=== PATIENT | female | born 1945 | race Hispanic/Latino ===

== ENCOUNTER 2017-08-10 12:04 | Outpatient (CLI) | payer MEDICARE, MEDICAID | END 2017-08-10 12:05 | disposition home or self-care (01) | LOC: BICRAD 12:04 | PROVIDERS: ATTEND Family Medicine | DX: R05 Cough (principal) | CPT/HCPCS: 71046 ==

== ENCOUNTER 2021-09-05 14:36 | Emergency (ER) | payer MEDICAID, MEDICARE ==
[2021-09-05] MEDS ORDERED: Ondansetron PF 4 MG/2 ML Vial ONE ×2 (15:52→15:53)
[2021-09-05] MEDS ORDERED: Meclizine HCl 25 MG TAB ONE (15:52)
[2021-09-05] MEDS ORDERED: Metoprolol Tartrate 25 MG TAB ONE (15:53)
== END 2021-09-05 18:08 | disposition home or self-care (01) ==
LOC: ERS 14:36
DX: R42 Dizziness and giddiness (principal); I10 Essential (primary) hypertension; E78.5 Hyperlipidemia, unspecified; E03.9 Hypothyroidism, unspecified; F17.210 Nicotine dependence, cigarettes, uncomplicated; Z79.899 Other long term (current) drug therapy
CPT/HCPCS: 96374; J2405

== ENCOUNTER 2022-02-26 09:17 | Emergency (ER) | payer MEDICARE ==
[2022-02-26] MEDS ORDERED: Diazepam 5 MG TAB ONE (10:14)
== END 2022-02-26 17:53 | disposition home or self-care (01) ==
LOC: ERS 09:17
DX: M54.2 Cervicalgia (principal); I10 Essential (primary) hypertension; E78.5 Hyperlipidemia, unspecified; Z76.0 Encounter for issue of repeat prescription
CPT/HCPCS: 99283

== ENCOUNTER 2023-10-07 15:03 | Emergency (ER) | payer MEDICARE ==
[2023-10-07 17:24] LABS: #Basophils 0.03 10x3/uL (0.0-0.2); %Basophils 0.5 % (0.0-1.0); %Eosinophils 1.7 % (0.0-10.0); %Monocytes 7.1 % (0.0-10.0); %Neutrophils 57.5 % (42.0-75.0); Hematocrit 38.4 % (36.0-47.0); Hemoglobin 12.9 g/dL (12.0-16.0); Mean Corpuscular HGB CONC 33.6 g/dL (32.0-36.0); Mean Corpuscular Hemoglobin 31.7 pg (27.0-31.0); Mean Corpuscular Volume 94.3 fL (78.0-98.0); Platelet Count 295 10x3/uL (130-400); RBC Distribution Width 12.7 % (11.5-14.5); Red Blood Cell (RBC) Count 4.07 mill/uL (4.20-5.40)
[2023-10-07 17:41] LABS: ALT (SGPT) 20 U/L (8-55); AST (SGOT) 18 U/L (5-34); Albumin 3.4 g/dL (3.4-4.8); Alkaline Phosphatase 92 U/L (40-110); Anion Gap 12 mmol/L (10-20); BUN (Urea Nitrogen) 10 mg/dL (9.8-20.1); Bilirubin, Total 0.4 mg/dL (0.2-1.2); Calc. Creatinine Clearance 0 mL/min (70-130); Calcium 9.1 mg/dL (7.8-10.44); Carbon Dioxide 28 mmol/L (23-31); Chloride 105 mmol/L (98-107); Estimated GFR 89; Glucose 100 mg/dL (83-110); Potassium 4.3 mmol/L (3.5-5.1); Protein, Total 6.4 g/dL (5.8-8.1); Sodium 141 mmol/L (136-145)
[2023-10-07 17:48] LABS: Troponin I 0.012 ng/mL (< 0.028)
== END 2023-10-07 18:18 | disposition home or self-care (01) ==
LOC: ERS 15:03
DX: R05.9 Cough, unspecified (principal); I11.0 Hypertensive heart disease with heart failure; I50.9 Heart failure, unspecified; F17.210 Nicotine dependence, cigarettes, uncomplicated; E03.9 Hypothyroidism, unspecified; E78.5 Hyperlipidemia, unspecified; Z79.899 Other long term (current) drug therapy
CPT/HCPCS: 36415; 71045; 80053; 83880; 84484; 85025; 93005

== ENCOUNTER 2024-06-20 22:48 | Inpatient (IN) | payer MEDICARE ==
[2024-06-20] MEDS ORDERED: Ipratropium/Albuterol 3 ML NEB ONE (23:17)
[2024-06-20] MEDS ORDERED: predniSONE 20 MG TAB ONE (23:45)
[2024-06-21] MEDS ORDERED: Magnesium 2 GM/50 ML BAG (IN WATER) ONE
[2024-06-21] MEDS ORDERED: Ipratropium/Albuterol 3 ML NEB ONE
[2024-06-21] MEDS ORDERED: Sodium Chloride 0.9% 100 ML ONE (00:01)
[2024-06-21] MEDS ORDERED: cefTRIAXone (ROCEPHIN) 2 GM VIAL ONE (00:01)
[2024-06-21] MEDS ORDERED: cefTRIAXone (ROCEPHIN) 1 GM VIAL ONE (00:12)
[2024-06-21] MEDS ORDERED: Azithromycin 500 MG VIAL ONE (00:46)
[2024-06-21 01:01] LABS: #Basophils Less than 0.03 10x3/uL (0.0-0.2); #Eosinophils Less than 0.03 10x3/uL (0.0-0.7); %Basophils 0.2 % (0.0-1.0); %Lymphocytes 21.2 % (21.0-51.0); %Monocytes 9.3 % (0.0-10.0); Hematocrit 30.2 % (36.0-47.0); Hemoglobin 9.6 g/dL (12.0-16.0); Mean Corpuscular HGB CONC 31.8 g/dL (32.0-36.0); Mean Corpuscular Hemoglobin 31.3 pg (27.0-31.0); Mean Corpuscular Volume 98.4 fL (78.0-98.0); Mean Platelet Volume 10.1 fL (7.4-10.4); Platelet Count 195 10x3/uL (130-400); RBC Distribution Width 13.2 % (11.5-14.5); Red Blood Cell (RBC) Count 3.07 mill/uL (4.20-5.40)
[2024-06-21 01:20] LABS: ALT (SGPT) 10 U/L (Less than 34); AST (SGOT) 22 U/L (11-34); Albumin 3.3 g/dL (3.1-4.5); Alkaline Phosphatase 76 U/L (40-110); Anion Gap 16 mmol/L (10-20); BUN (Urea Nitrogen) 13 mg/dL (9.8-20.1); Bilirubin, Total 0.3 mg/dL (0.3-1.2); Calc. Creatinine Clearance 0 mL/min (70-130); Calcium 8.3 mg/dL (7.8-10.44); Carbon Dioxide 21 mmol/L (23-31); Chloride 105 mmol/L (98-107); Estimated GFR 90; Globulin 3.3 g/dL (2.4-3.5); Glucose 134 mg/dL (83-110); Magnesium 2.6 mg/dL (1.6-2.6); Potassium 3.5 mmol/L (3.5-5.1); Protein, Total 6.6 g/dL (5.8-8.1); Sodium 138 mmol/L (136-145)
[2024-06-21 01:30] LABS: Actual Bicarbonate (HCO3v) 21.5 mEq/L (22-28); Analyzer IN Cardio ER; Base Excess -1.8 mEq/L (-2.0 to +3.0); Calcium, Ionized (venous) 1.01 mmol/L (1.16-1.32); Chloride (VBG) 104 mmol/L (98-106); Hematocrit-VBG 38 % (36.0-47.0); Hemoglobin (Hb) 12.8 g/dL (11.7-16.1); Potassium (VBG) 3.47 mmol/L (3.70-5.30); Sodium 137 mmol/L (133-146); pH (venous) 7.445 (7.32-7.43)
[2024-06-21] MEDS ORDERED: Furosemide 20 MG (2 mL) VIAL ONE (01:50)
[2024-06-21 02:06] LABS: Troponin I 0.401 ng/mL (< 0.028)
[2024-06-21] MEDS ORDERED: Aspirin Chewable 81 MG TAB ONE (02:13)
[2024-06-21] MEDS ORDERED: Enoxaparin 100 MG (1 mL) SYRINGE ONE (02:24)
[2024-06-21] MEDS ORDERED: Acetaminophen 325 MG TAB PO PRN ×2 (02:45→03:54)
[2024-06-21] MEDS ORDERED: Ondansetron PF 4 MG/2 ML Vial IVP PRN (02:45)
[2024-06-21] MEDS ORDERED: Ondansetron ODT 4 MG TAB SL PRN (02:45)
[2024-06-21] MEDS ORDERED: Albuterol 2.5 MG (0.5 mL) NEB ONE (03:09)
[2024-06-21] MEDS ORDERED: INSULIN REGULAR IN 0.9 % NACL 0 ML ONE (03:13)
[2024-06-21] MEDS ORDERED: Ipratropium/Albuterol 3 ML NEB NEB PRN (03:45)
[2024-06-21] MEDS ORDERED: ACETAMINOPHEN 650 MG PO SCH (03:45)
[2024-06-21 04:47] VITALS: BMI 27.3
[2024-06-21] MEDS: Levothyroxine Sodium 100 MCG TAB PO SCH (05:34)
[2024-06-21] MEDS: Oseltamivir 75 MG CAP PO SCH ×2 (05:34→20:06)
[2024-06-21] MEDS: Furosemide 20 MG (2 mL) VIAL SLOW IVP SCH (05:34)
[2024-06-21] MEDS: Ipratropium/Albuterol 3 ML NEB NEB SCH (08:17)
[2024-06-21 08:36] LABS: Troponin I 0.457 ng/mL (< 0.028)
[2024-06-21] MEDS ORDERED: Oseltamivir 75 MG CAP PO SCH (09:00)
[2024-06-21] MEDS: Cilostazol 100 MG TAB PO SCH (09:30)
[2024-06-21] MEDS: FLU (Fluad Triv) TS24-25 (65UP)/MF59C/PF 45 MCG/0.5 ML Syringe IM ONE (09:31)
[2024-06-21] MEDS: Potassium Chloride 20 MEQ TAB PO SCH (09:31)
[2024-06-21] MEDS: Enoxaparin 40 MG (0.4 mL) SYRINGE SC SCH (09:31)
[2024-06-21] MEDS: Lisinopril 20 MG TAB PO SCH (09:39)
[2024-06-21 09:47] LABS: Phosphorus 4.2 mg/dL (2.5-4.5)
[2024-06-21 09:48] LABS: Magnesium 2.1 mg/dL (1.6-2.6)
[2024-06-21] MEDS: DorzolamidE/Timolol 2%/0.5% Ophth Soln 10 ml Bottle EA EYE SCH (11:23)
[2024-06-21 12:03] LABS: Critical Call Chem Troponin I RESULT DECREASING; Troponin I 0.386 ng/mL (< 0.028)
[2024-06-21] MEDS: Benzonatate 100 MG CAP PO PRN (19:09)
[2024-06-21] MEDS: Atorvastatin Calcium 20 MG TAB PO SCH (20:06)
[2024-06-21] MEDS: Latanoprost 0.005% Ophth Soln 2.5 ml Bottle EA EYE SCH (20:07)
[2024-06-22 05:41] LABS: #Basophils Less than 0.03 10x3/uL (0.0-0.2); %Basophils 0.3 % (0.0-1.0); %Eosinophils 0.4 % (0.0-10.0); %Lymphocytes 23.7 % (21.0-51.0); %Monocytes 9.5 % (0.0-10.0); Hematocrit 39.5 % (36.0-47.0); Hemoglobin 12.6 g/dL (12.0-16.0); Mean Corpuscular HGB CONC 31.9 g/dL (32.0-36.0); Mean Corpuscular Hemoglobin 31.2 pg (27.0-31.0); Mean Corpuscular Volume 97.8 fL (78.0-98.0); Mean Platelet Volume 10.7 fL (7.4-10.4); Platelet Count 190 10x3/uL (130-400); RBC Distribution Width 12.8 % (11.5-14.5); Red Blood Cell (RBC) Count 4.04 mill/uL (4.20-5.40)
[2024-06-22 05:59] LABS: Anion Gap 14 mmol/L (10-20); BUN (Urea Nitrogen) 15 mg/dL (9.8-20.1); Calc. Creatinine Clearance 86 mL/min (70-130); Calcium 8.7 mg/dL (7.8-10.44); Carbon Dioxide 28 mmol/L (23-31); Chloride 103 mmol/L (98-107); Estimated GFR 91; Glucose 107 mg/dL (83-110); Potassium 3.8 mmol/L (3.5-5.1); Sodium 141 mmol/L (136-145)
[2024-06-22] MEDS: Guaifenesin DM 100-10/5 ML UDCUP PO PRN (10:22)
[2024-06-22] MEDS ORDERED: Ipratropium/Albuterol 3 ML NEB NEB PRN (16:28)
[2024-06-22] MEDS: predniSONE 20 MG TAB PO SCH (17:56)
[2024-06-22] MEDS: Ipratropium/Albuterol 3 ML NEB NEB SCH (19:47)
[2024-06-22 21:24] LABS: #Basophils Less than 0.03 10x3/uL (0.0-0.2); #Eosinophils Less than 0.03 10x3/uL (0.0-0.7); %Basophils 0.2 % (0.0-1.0); %Eosinophils 0.3 % (0.0-10.0); %Lymphocytes 14.8 % (21.0-51.0); %Monocytes 5.7 % (0.0-10.0); %Neutrophils 78.8 % (42.0-75.0); Hematocrit 40.7 % (36.0-47.0); Hemoglobin 13.2 g/dL (12.0-16.0); Mean Corpuscular HGB CONC 32.4 g/dL (32.0-36.0); Mean Corpuscular Hemoglobin 31.3 pg (27.0-31.0); Mean Corpuscular Volume 96.4 fL (78.0-98.0); Mean Platelet Volume 10.4 fL (7.4-10.4); Platelet Count 189 10x3/uL (130-400); RBC Distribution Width 12.9 % (11.5-14.5); Red Blood Cell (RBC) Count 4.22 mill/uL (4.20-5.40)
[2024-06-23 05:24] LABS: #Basophils Less than 0.03 10x3/uL (0.0-0.2); #Eosinophils Less than 0.03 10x3/uL (0.0-0.7); %Lymphocytes 21.4 % (21.0-51.0); %Monocytes 6.4 % (0.0-10.0); %Neutrophils 71.9 % (42.0-75.0); Hematocrit 39.5 % (36.0-47.0); Hemoglobin 13.2 g/dL (12.0-16.0); Mean Corpuscular HGB CONC 33.4 g/dL (32.0-36.0); Mean Corpuscular Hemoglobin 31.9 pg (27.0-31.0); Mean Corpuscular Volume 95.4 fL (78.0-98.0); Mean Platelet Volume 10.5 fL (7.4-10.4); Platelet Count 201 10x3/uL (130-400); RBC Distribution Width 12.6 % (11.5-14.5); Red Blood Cell (RBC) Count 4.14 mill/uL (4.20-5.40)
[2024-06-23 05:50] LABS: Anion Gap 17 mmol/L (10-20); BUN (Urea Nitrogen) 18 mg/dL (9.8-20.1); Calc. Creatinine Clearance 74 mL/min (70-130); Calcium 8.8 mg/dL (7.8-10.44); Carbon Dioxide 25 mmol/L (23-31); Chloride 102 mmol/L (98-107); Estimated GFR 81; Glucose 148 mg/dL (83-110); Potassium 4.6 mmol/L (3.5-5.1); Sodium 139 mmol/L (136-145)
[2024-06-23 08:33] VITALS: TEMP 98.2
[2024-06-23] MEDS: Aspirin Chewable 81 MG TAB PO SCH (08:34)
[2024-06-23 17:17] VITALS: BP 106/53
[2024-06-24] MEDS ORDERED: Empagliflozin 10 MG TAB PO SCH (09:00)
[2024-06-24] MEDS ORDERED: Furosemide 20 MG TAB PO SCH (09:00)
== END 2024-06-23 18:05 | disposition home or self-care (01) | DRG 280 ==
LOC: ERS 22:48 → OBS 06-21 02:39 → OBSVTOIN 06-22 16:26
PROVIDERS: ADMIT Family Medicine; ATTEND Family Medicine
DX: I11.0 Hypertensive heart disease with heart failure (principal); I50.33 Acute on chronic diastolic (congestive) heart failure; I21.A1 Myocardial infarction type 2; J96.01 Acute respiratory failure with hypoxia; J44.1 Chronic obstructive pulmonary disease with (acute) exacerbation; E87.3 Alkalosis; J10.1 Influenza due to other identified influenza virus with other respiratory manifestations; I35.0 Nonrheumatic aortic (valve) stenosis; Z66 Do not resuscitate; I25.10 Atherosclerotic heart disease of native coronary artery without angina pectoris; E03.9 Hypothyroidism, unspecified; F17.210 Nicotine dependence, cigarettes, uncomplicated; I73.9 Peripheral vascular disease, unspecified; R94.31 Abnormal electrocardiogram [ECG] [EKG]; Z95.1 Presence of aortocoronary bypass graft; Z79.890 Hormone replacement therapy; Z79.899 Other long term (current) drug therapy; Z90.49 Acquired absence of other specified parts of digestive tract
CPT/HCPCS: 36415; 71045; 80048; 80053; 82805; 83605; 83735; 83880; 84100; 84145; 84484; 85025; 87040; 87428; 90653; 93005; 93306; 94640; 96372; 96374; 96375; 96376; G0378; J0456; J0696; J1650; J1815; J1940; J3475; J7512; J7611; J7620